=== PATIENT | male | born 1940 | race Caucasian/White ===

== ENCOUNTER 2017-06-14 14:39 | Inpatient (IN) | payer MEDICARE ==
[~2017-06-14] VITALS: Ht 167.6 cm; Wt 73.6 kg
[2017-06-14 07:45] VITALS: BP 120/41
[~2017-06-14 14:39] MED LIST: ACET-2615 PO; AMIO200T57 PO; APIX2.5T PO; ASPI-1053 PO; ATOR20TA; CARV25TA2 PO; ENAL20TA75 PO; FURO-150 PO; ISOS30TA9 PO; MULT-1179 PO; NIAC250C2 PO; NITR0.4T51 SL; OMEG500C3 PO; POTA10CA44 PO
[2017-06-14] MEDS ORDERED: normal saline 1000ml 1,000 ML IV ONE (15:50)
[2017-06-14] MEDS ORDERED: morphine sulfate 8 MG/ML SYRINGE IV ONE (15:50)
[2017-06-14] MEDS ORDERED: ATOR20TA PO (16:24)
[2017-06-14] MEDS ORDERED: AMIO200T57 PO (16:24)
[2017-06-14] MEDS ORDERED: ENAL10TA PO (16:24)
[2017-06-14 16:45] LABS: BASOPHILS % (AUTO) 0.5 % (0-1); EOSINOPHILS # (AUTO) 0.6 X10'3 (0-0.9); HEMATOCRIT 33.1 % (42.0-52.0); HEMOGLOBIN 11.6 g/dl (14.0-17.9); LYMPHOCYTES % (AUTO) 12.1 % (21-51); MEAN CORPUSCULAR HEMOGLOBIN 36.2 PG (27.0-31.0); MEAN CORPUSCULAR HGB CONC 35.2 % (33.0-36.5); MEAN CORPUSCULAR VOLUME 102.9 FL (78-98); MEAN PLATELET VOLUME 7.8 FL (7.4-10.4); MONOCYTES # (AUTO) 0.5 X10'3 (0-0.9); MONOCYTES % (AUTO) 6.4 % (2-12); NEUTROPHILS # (AUTO) 6.3 X10'3 (1.8-7.7); PLATELET COUNT 127 X10'3 (140-440); RED BLOOD COUNT 3.21 X10'6 (4.70-6.10); RED CELL DISTRIBUTION WIDTH 14.6 % (11.5-14.5); WHITE BLOOD COUNT 8.5 X10'3 (4.5-11.0)
[2017-06-14 16:55] LABS: INR 1.4 INR; PARTIAL THROMBOPLASTIN TIME 31 SECONDS (22-32); PROTHROMBIN TIME 14.1 SECONDS (9.0-12.0)
[2017-06-14 17:00] LABS: ALANINE AMINOTRANSFERASE 42 U/L (12-78); ALBUMIN 3.4 G/DL (3.4-5.0); ALBUMIN/GLOBULIN RATIO 0.9 (1.1-1.5); ALKALINE PHOSPHATASE 82 IU/L (46-116); ANION GAP 9 (8-16); ASPARTATE AMINO TRANSFERASE 40 U/L (10-37); BILIRUBIN,TOTAL 1.6 MG/DL (0.1-1.0); BLOOD UREA NITROGEN 44 MG/DL (7-18); BUN/CREATININE RATIO 20.8 (5.4-32.0); CHLORIDE 106 MMOL/L (99-107); CREATININE 2.12 MG/DL (0.60-1.10); GLUCOSE 112 MG/DL (70-104); MAGNESIUM 1.8 MG/DL (1.5-2.4); POTASSIUM 4.2 MMOL/L (3.5-5.1); SODIUM 139 MMOL/L (135-145); TOTAL CARBON DIOXIDE 24.1 MMOL/L (24-32); eGFR 31 ML/MIN
[2017-06-14 17:09] LABS: CLARITY,URINE Clear (Clear); COLOR,URINE Dark Yellow (Yellow); GLUCOSE, URINE Negative (Neg); KETONES,URINE Negative (Neg); LEUKOCYTE ESTERASE ,URINE Trace (Neg); NITRITES, URINE Negative (Neg); OCCULT BLOOD,URINE Negative (Neg); PROTEIN,URINE Negative (Neg)
[2017-06-14 17:10] LABS: UA COLLECTION TYPE URINAL
[2017-06-14 17:18] LABS: BACTERIA,URINE NONE SEEN /HPF (Neg); RBC,URINE NONE SEEN /HPF (0-2); SQUAMOUS EPITHELIAL CELL,UR NONE SEEN /LPF (FEW); WBC,URINE 0-4 /HPF (0-4)
[2017-06-14] MEDS ORDERED: mag hydrox/Alum hydrox/simeth 30ml oral suspension PO PRN (17:30)
[2017-06-14] MEDS ORDERED: potassium Cl 40MEQ/NS 500ml 500 ML IV PRN ×2 (17:30)
[2017-06-14] MEDS ORDERED: acetaminophen 325mg tablet PO PRN (17:30)
[2017-06-14] MEDS ORDERED: magnesium 2GM in 50ml NS 50 ML IV PRN (17:30)
[2017-06-14] MEDS ORDERED: magnesium hydroxide 30ml (MOM) UD suspension PO PRN (17:30)
[2017-06-14] MEDS ORDERED: potassium Cl 20 mEq SR tablet PO PRN ×2 (17:30)
[2017-06-14] MEDS ORDERED: ondansetron/PF 4mg/2ml inj IV PRN (17:30)
[2017-06-14] MEDS ORDERED: magnesium Cl slow-release 64mg tablet PO PRN (17:30)
[2017-06-14] MEDS ORDERED: magnesium 4gm in 100ml NS 100 ML IV PRN (17:30)
[2017-06-14] MEDS ORDERED: morphine sulfate 8 MG/ML SYRINGE IV PRN (17:30)
[2017-06-14] MEDS ORDERED: nitroGLYCERIN 0.4mg SUBLingual tab SL PRN (17:35)
[2017-06-14] MEDS: morphine sulfate 8 MG/ML SYRINGE IV PRN (20:00)
[2017-06-14] MEDS: carVEDilol 12.5mg tablet PO SCH (20:00)
[2017-06-14] MEDS: OMEGA-3/DHA/EPA/FISH OIL 1 EACH CAPSULE.DR PO SCH (20:00)
[2017-06-14] MEDS: atorvastatin 20mg tablet PO SCH (21:31)
[2017-06-14] MEDS: normal saline 1000ml 1,000 ML IV SCH (23:45)
[2017-06-15] MEDS: morphine sulfate 8 MG/ML SYRINGE IV PRN (04:03)
[2017-06-15 05:00] VITALS: BP 104/48
[2017-06-15] MEDS ORDERED: FLU VACC QS2017-18 36MOS UP/PF 60 MCG/0.5 ML SYRINGE IMVAC ONE (06:15)
[2017-06-15 06:40] LABS: CHLORIDE 110 MMOL/L (99-107); GLUCOSE 101 MG/DL (70-104); POTASSIUM 4.4 MMOL/L (3.5-5.1); SODIUM 143 MMOL/L (135-145); TOTAL CARBON DIOXIDE 22.2 MMOL/L (24-32)
[2017-06-15 06:41] LABS: ALANINE AMINOTRANSFERASE 41 U/L (12-78); ALBUMIN 3.2 G/DL (3.4-5.0); ALBUMIN/GLOBULIN RATIO 0.9 (1.1-1.5); ALKALINE PHOSPHATASE 79 IU/L (46-116); ANION GAP 11 (8-16); ASPARTATE AMINO TRANSFERASE 37 U/L (10-37); BILIRUBIN,TOTAL 1.8 MG/DL (0.1-1.0); BLOOD UREA NITROGEN 37 MG/DL (7-18); BUN/CREATININE RATIO 19.8 (5.4-32.0); CALCIUM 9.2 MG/DL (8.5-10.1); CREATININE 1.87 MG/DL (0.60-1.10); TOTAL PROTEIN 6.8 G/DL (6.4-8.2); eGFR 35 ML/MIN
[2017-06-15 06:45] LABS: MAGNESIUM 1.9 MG/DL (1.5-2.4)
[2017-06-15 07:02] LABS: BASOPHILS % (AUTO) 0.5 % (0-1); EOSINOPHILS # (AUTO) 0.5 X10'3 (0-0.9); EOSINOPHILS % (AUTO) 5.8 % (0-6); HEMATOCRIT 35.2 % (42.0-52.0); HEMOGLOBIN 11.8 g/dl (14.0-17.9); LYMPHOCYTES # (AUTO) 1.2 X10'3 (1.1-4.8); LYMPHOCYTES % (AUTO) 14.5 % (21-51); MEAN CORPUSCULAR HEMOGLOBIN 32.4 PG (27.0-31.0); MEAN CORPUSCULAR HGB CONC 33.4 % (33.0-36.5); MEAN CORPUSCULAR VOLUME 96.9 FL (78-98); MEAN PLATELET VOLUME 8.2 FL (7.4-10.4); MONOCYTES # (AUTO) 0.6 X10'3 (0-0.9); MONOCYTES % (AUTO) 6.7 % (2-12); NEUTROPHILS # (AUTO) 6.2 X10'3 (1.8-7.7); NEUTROPHILS % (AUTO) 72.5 % (42-75); PLATELET COUNT 124 X10'3 (140-440); RED BLOOD COUNT 3.64 X10'6 (4.70-6.10); RED CELL DISTRIBUTION WIDTH 14.3 % (11.5-14.5); WHITE BLOOD COUNT 8.5 X10'3 (4.5-11.0)
[2017-06-15] MEDS: K and/or MAG REPLACEMENT MC SCH (07:07)
[2017-06-15] MEDS: carVEDilol 12.5mg tablet PO SCH ×2 (07:08→20:51)
[2017-06-15] MEDS: isosorbide dinitrate 30mg tablet PO SCH (07:52)
[2017-06-15] MEDS: OMEGA-3/DHA/EPA/FISH OIL 1 EACH CAPSULE.DR PO SCH ×2 (07:52→20:00)
[2017-06-15] MEDS: amiodarone 200mg tablet PO SCH (07:52)
[2017-06-15] MEDS ORDERED: lisinopril 10 MG tablet PO SCH (08:00)
[2017-06-15 10:00] VITALS: BP 90/46
[2017-06-15 18:00] VITALS: BP 101/48
[2017-06-15] MEDS: normal saline 1000ml 1,000 ML IV SCH (18:00)
[2017-06-15] MEDS: atorvastatin 20mg tablet PO SCH (20:50)
[2017-06-15] MEDS: heparin, porcine 5000 units/ml vial SQ SCH (20:51)
[2017-06-15 22:00] VITALS: BP 93/53
[2017-06-16 05:00] VITALS: BP 105/55
[2017-06-16 06:21] LABS: BASOPHILS # (AUTO) 0.1 X10'3 (0-0.2); BASOPHILS % (AUTO) 0.8 % (0-1); EOSINOPHILS # (AUTO) 0.3 X10'3 (0-0.9); EOSINOPHILS % (AUTO) 3.4 % (0-6); HEMATOCRIT 35.8 % (42.0-52.0); HEMOGLOBIN 11.9 g/dl (14.0-17.9); LYMPHOCYTES # (AUTO) 1.5 X10'3 (1.1-4.8); LYMPHOCYTES % (AUTO) 16.3 % (21-51); MEAN CORPUSCULAR HEMOGLOBIN 32.1 PG (27.0-31.0); MEAN CORPUSCULAR HGB CONC 33.3 % (33.0-36.5); MEAN CORPUSCULAR VOLUME 96.3 FL (78-98); MEAN PLATELET VOLUME 8.2 FL (7.4-10.4); MONOCYTES # (AUTO) 0.8 X10'3 (0-0.9); MONOCYTES % (AUTO) 9.2 % (2-12); NEUTROPHILS # (AUTO) 6.5 X10'3 (1.8-7.7); NEUTROPHILS % (AUTO) 70.3 % (42-75); PLATELET COUNT 121 X10'3 (140-440); RED BLOOD COUNT 3.72 X10'6 (4.70-6.10); RED CELL DISTRIBUTION WIDTH 13.9 % (11.5-14.5); WHITE BLOOD COUNT 9.2 X10'3 (4.5-11.0)
[2017-06-16 06:49] LABS: ALANINE AMINOTRANSFERASE 48 U/L (12-78); ALBUMIN 2.9 G/DL (3.4-5.0); ALBUMIN/GLOBULIN RATIO 0.8 (1.1-1.5); ALKALINE PHOSPHATASE 78 IU/L (46-116); ANION GAP 11 (8-16); ASPARTATE AMINO TRANSFERASE 58 U/L (10-37); BILIRUBIN,TOTAL 1.6 MG/DL (0.1-1.0); BLOOD UREA NITROGEN 31 MG/DL (7-18); BUN/CREATININE RATIO 19.1 (5.4-32.0); CALCIUM 8.8 MG/DL (8.5-10.1); CHLORIDE 108 MMOL/L (99-107); CREATININE 1.62 MG/DL (0.60-1.10); GLUCOSE 95 MG/DL (70-104); POTASSIUM 4.4 MMOL/L (3.5-5.1); SODIUM 141 MMOL/L (135-145); TOTAL CARBON DIOXIDE 22.2 MMOL/L (24-32); TOTAL PROTEIN 6.6 G/DL (6.4-8.2); eGFR 42 ML/MIN
[2017-06-16] MEDS: K and/or MAG REPLACEMENT MC SCH (07:37)
[2017-06-16] MEDS: carVEDilol 12.5mg tablet PO SCH ×2 (08:00→20:46)
[2017-06-16] MEDS: lisinopril 5mg tablet PO SCH (08:00)
[2017-06-16] MEDS: amiodarone 200mg tablet PO SCH (08:12)
[2017-06-16] MEDS: isosorbide dinitrate 30mg tablet PO SCH (08:13)
[2017-06-16] MEDS: normal saline 1000ml 1,000 ML IV SCH ×2 (08:13→23:17)
[2017-06-16] MEDS: heparin, porcine 5000 units/ml vial SQ SCH ×2 (08:13→20:00)
[2017-06-16] MEDS: OMEGA-3/DHA/EPA/FISH OIL 1 EACH CAPSULE.DR PO SCH ×2 (08:13→20:46)
[2017-06-16 10:00] VITALS: BP 110/63
[2017-06-16] MEDS ORDERED: emollient combination-Eucerin 250 ML LOTION TP PRN (13:30)
[2017-06-16] MEDS ORDERED: diphenhydrAMINE 25mg capsule PO PRN (13:30)
[2017-06-16 18:30] VITALS: BP 111/66
[2017-06-16] MEDS: atorvastatin 20mg tablet PO SCH (20:46)
[2017-06-16 22:00] VITALS: BP 94/48
[2017-06-17] VITALS (17 sets, daily range): BP systolic 88–129; BP diastolic 37–75
[2017-06-17 06:57] LABS: INR 1.2 INR; PROTHROMBIN TIME 12.5 SECONDS (9.0-12.0)
[2017-06-17 07:20] LABS: ALANINE AMINOTRANSFERASE 49 U/L (12-78); ALBUMIN 2.8 G/DL (3.4-5.0); ALBUMIN/GLOBULIN RATIO 0.7 (1.1-1.5); ALKALINE PHOSPHATASE 78 IU/L (46-116); ANION GAP 10 (8-16); ASPARTATE AMINO TRANSFERASE 61 U/L (10-37); BILIRUBIN,TOTAL 1.4 MG/DL (0.1-1.0); BLOOD UREA NITROGEN 28 MG/DL (7-18); BUN/CREATININE RATIO 18.2 (5.4-32.0); CALCIUM 8.5 MG/DL (8.5-10.1); CHLORIDE 107 MMOL/L (99-107); CREATININE 1.54 MG/DL (0.60-1.10); GLUCOSE 98 MG/DL (70-104); POTASSIUM 4.4 MMOL/L (3.5-5.1); SODIUM 139 MMOL/L (135-145); TOTAL CARBON DIOXIDE 22.2 MMOL/L (24-32); TOTAL PROTEIN 6.6 G/DL (6.4-8.2); eGFR 44 ML/MIN
[2017-06-17 07:21] LABS: BASOPHILS % (AUTO) 0.1 % (0-1); EOSINOPHILS # (AUTO) 0.3 X10'3 (0-0.9); EOSINOPHILS % (AUTO) 2.9 % (0-6); HEMATOCRIT 35.5 % (42.0-52.0); HEMOGLOBIN 11.8 g/dl (14.0-17.9); LYMPHOCYTES # (AUTO) 1.5 X10'3 (1.1-4.8); MEAN CORPUSCULAR HEMOGLOBIN 32.4 PG (27.0-31.0); MEAN CORPUSCULAR HGB CONC 33.3 % (33.0-36.5); MEAN CORPUSCULAR VOLUME 97.4 FL (78-98); MEAN PLATELET VOLUME 8.1 FL (7.4-10.4); MONOCYTES # (AUTO) 0.7 X10'3 (0-0.9); NEUTROPHILS # (AUTO) 6.5 X10'3 (1.8-7.7); PLATELET COUNT 137 X10'3 (140-440); RED BLOOD COUNT 3.64 X10'6 (4.70-6.10); RED CELL DISTRIBUTION WIDTH 14.4 % (11.5-14.5); WHITE BLOOD COUNT 9.1 X10'3 (4.5-11.0)
[2017-06-17] MEDS: K and/or MAG REPLACEMENT MC SCH (07:34)
[2017-06-17] MEDS: lisinopril 5mg tablet PO SCH (07:35)
[2017-06-17] MEDS: carVEDilol 12.5mg tablet PO SCH (07:35)
[2017-06-17] MEDS: heparin, porcine 5000 units/ml vial SQ SCH ×2 (07:36→20:56)
[2017-06-17] MEDS: amiodarone 200mg tablet PO SCH (07:42)
[2017-06-17] MEDS: OMEGA-3/DHA/EPA/FISH OIL 1 EACH CAPSULE.DR PO SCH ×2 (07:42→20:56)
[2017-06-17] MEDS: isosorbide dinitrate 30mg tablet PO SCH (07:42)
[2017-06-17] MEDS ORDERED: ringers solution, lacted 1,000 ML IV SCH (11:01)
[2017-06-17] MEDS ORDERED: morphine sulfate 8 MG/ML SYRINGE IV PRN (11:05)
[2017-06-17] MEDS ORDERED: meperidine/PF 25mg/ml syringe IV ONE (11:05)
[2017-06-17] MEDS ORDERED: proCHLORperazine 10 MG/2 ml inj IV PRN (11:05)
[2017-06-17] MEDS ORDERED: ondansetron/PF 4mg/2ml inj IV PRN ×2 (11:05→13:35)
[2017-06-17] MEDS ORDERED: meperidine/PF 25mg/ml syringe IV PRN ×2 (11:05)
[2017-06-17] MEDS: carvedilol 6.25mg tablet PO SCH ×2 (11:41→20:00)
[2017-06-17] MEDS ORDERED: desflurane 240ml liquid inh. IH ONE (12:00)
[2017-06-17] MEDS ORDERED: fentaNYL /PF 50mcg/ml 5ml ampule ONE (12:08)
[2017-06-17] MEDS ORDERED: midazolam 2 mg/2 ml injection ONE (12:08)
[2017-06-17] MEDS ORDERED: LIDOcaine 2% 5ml jelly ONE (12:14)
[2017-06-17] MEDS ORDERED: cloNIDine hcl/PF 100mcg/ml inj ONE (12:32)
[2017-06-17] MEDS ORDERED: rocuronium 10mg/ml inj IV ONE (12:44)
[2017-06-17] MEDS ORDERED: ceFAZolin 1000mg inj ONE (12:44)
[2017-06-17] MEDS ORDERED: LIDOcaine 2% (20mg/ml) 5ml vial ONE (12:44)
[2017-06-17] MEDS ORDERED: propofol inj 20 ML IV ONE (12:44)
[2017-06-17] MEDS ORDERED: diphenhydrAMINE 25mg capsule PO PRN ×2 (13:35)
[2017-06-17] MEDS ORDERED: magnesium hydroxide 30ml (MOM) UD suspension PO PRN (13:35)
[2017-06-17] MEDS ORDERED: bisacodyl 10mg suppository rectal RC PRN (13:35)
[2017-06-17] MEDS ORDERED: acetaminophen 325mg tablet PO PRN (13:35)
[2017-06-17] MEDS ORDERED: dexamethasone sod phosphate 4mg/ml inj. ONE (13:42)
[2017-06-17] MEDS ORDERED: BUPIVAcaine/PF 2.5 mg/ml (0.25%) 30ml vial ONE (13:42)
[2017-06-17] MEDS ORDERED: 0.9 % SODIUM CHLORIDE 10 ML VIAL ONE (13:42)
[2017-06-17] MEDS: morphine sulfate 8 MG/ML SYRINGE IV PRN ×3 (14:31→16:51)
[2017-06-17] MEDS: CEFAZOLIN SODIUM/NORMAL SALINE 100 ML IV SCH (16:51)
[2017-06-17] MEDS: normal saline 1000ml 1,000 ML IV SCH (20:56)
[2017-06-17] MEDS: sennosides 8.6mg tablet PO SCH (20:56)
[2017-06-17] MEDS: atorvastatin 20mg tablet PO SCH (20:56)
[2017-06-18] MEDS: CEFAZOLIN SODIUM/NORMAL SALINE 100 ML IV SCH (00:32)
[2017-06-18 02:00] VITALS: BP 119/73
[2017-06-18 05:00] VITALS: BP 118/70
[2017-06-18 06:24] LABS: BASOPHILS % (AUTO) 0.1 % (0-1); EOSINOPHILS # (AUTO) 0.1 X10'3 (0-0.9); EOSINOPHILS % (AUTO) 1.5 % (0-6); HEMATOCRIT 35.8 % (42.0-52.0); HEMOGLOBIN 11.9 g/dl (14.0-17.9); LYMPHOCYTES # (AUTO) 0.6 X10'3 (1.1-4.8); LYMPHOCYTES % (AUTO) 6.6 % (21-51); MEAN CORPUSCULAR HEMOGLOBIN 32.4 PG (27.0-31.0); MEAN CORPUSCULAR HGB CONC 33.1 % (33.0-36.5); MEAN CORPUSCULAR VOLUME 97.9 FL (78-98); MEAN PLATELET VOLUME 8.4 FL (7.4-10.4); MONOCYTES # (AUTO) 0.3 X10'3 (0-0.9); MONOCYTES % (AUTO) 3.7 % (2-12); NEUTROPHILS % (AUTO) 88.1 % (42-75); PLATELET COUNT 124 X10'3 (140-440); RED BLOOD COUNT 3.65 X10'6 (4.70-6.10); RED CELL DISTRIBUTION WIDTH 13.7 % (11.5-14.5); WHITE BLOOD COUNT 9.1 X10'3 (4.5-11.0)
[2017-06-18 06:35] LABS: ALANINE AMINOTRANSFERASE 43 U/L (12-78); ALBUMIN 2.6 G/DL (3.4-5.0); ALBUMIN/GLOBULIN RATIO 0.7 (1.1-1.5); ALKALINE PHOSPHATASE 74 IU/L (46-116); ANION GAP 11 (8-16); ASPARTATE AMINO TRANSFERASE 57 U/L (10-37); BILIRUBIN,TOTAL 1.1 MG/DL (0.1-1.0); BLOOD UREA NITROGEN 32 MG/DL (7-18); BUN/CREATININE RATIO 24.4 (5.4-32.0); CALCIUM 8.7 MG/DL (8.5-10.1); CHLORIDE 107 MMOL/L (99-107); CREATININE 1.31 MG/DL (0.60-1.10); GLUCOSE 129 MG/DL (70-104); MAGNESIUM 1.9 MG/DL (1.5-2.4); POTASSIUM 4.6 MMOL/L (3.5-5.1); SODIUM 140 MMOL/L (135-145); TOTAL CARBON DIOXIDE 21.8 MMOL/L (24-32); TOTAL PROTEIN 6.5 G/DL (6.4-8.2); eGFR 53 ML/MIN
[2017-06-18] MEDS: K and/or MAG REPLACEMENT MC SCH (08:00)
[2017-06-18] MEDS: OMEGA-3/DHA/EPA/FISH OIL 1 EACH CAPSULE.DR PO SCH ×2 (08:37→19:37)
[2017-06-18] MEDS: carvedilol 6.25mg tablet PO SCH ×2 (08:37→20:00)
[2017-06-18] MEDS: amiodarone 200mg tablet PO SCH (08:37)
[2017-06-18] MEDS: isosorbide dinitrate 30mg tablet PO SCH (08:38)
[2017-06-18] MEDS: lisinopril 5mg tablet PO SCH (08:38)
[2017-06-18] MEDS: heparin, porcine 5000 units/ml vial SQ SCH (08:38)
[2017-06-18 10:00] VITALS: BP 102/60
[2017-06-18 18:03] VITALS: BP 92/52
[2017-06-18] MEDS: sennosides 8.6mg tablet PO SCH (19:37)
[2017-06-18] MEDS: atorvastatin 20mg tablet PO SCH (19:37)
[2017-06-18] MEDS: apixaban 2.5mg tablet PO SCH (19:37)
[2017-06-18 19:39] VITALS: BP 85/48
[2017-06-18] MEDS: normal saline 1000ml 1,000 ML IV SCH (21:10)
[2017-06-18 22:11] VITALS: BP 94/53
[2017-06-19] MEDS ORDERED: HYDROcodone/acetaminophen 10/325mg tab PO PRN (05:20)
[2017-06-19 06:00] VITALS: BP 92/52
[2017-06-19] MEDS: HYDROcodone/acetaminophen 10/325mg tab PO PRN (06:13)
[2017-06-19] MEDS: carvedilol 6.25mg tablet PO SCH ×2 (06:52→20:24)
[2017-06-19] MEDS: lisinopril 5mg tablet PO SCH (06:53)
[2017-06-19] MEDS: amiodarone 200mg tablet PO SCH (07:16)
[2017-06-19] MEDS: isosorbide dinitrate 30mg tablet PO SCH (07:17)
[2017-06-19] MEDS: apixaban 2.5mg tablet PO SCH ×2 (07:17→20:24)
[2017-06-19] MEDS: OMEGA-3/DHA/EPA/FISH OIL 1 EACH CAPSULE.DR PO SCH ×2 (07:17→20:24)
[2017-06-19 07:43] LABS: BASOPHILS # (AUTO) 0.1 X10'3 (0-0.2); BASOPHILS % (AUTO) 0.5 % (0-1); EOSINOPHILS # (AUTO) 0.2 X10'3 (0-0.9); EOSINOPHILS % (AUTO) 1.3 % (0-6); HEMATOCRIT 32.8 % (42.0-52.0); HEMOGLOBIN 10.8 g/dl (14.0-17.9); LYMPHOCYTES % (AUTO) 8.4 % (21-51); MEAN CORPUSCULAR HEMOGLOBIN 32.4 PG (27.0-31.0); MEAN CORPUSCULAR HGB CONC 32.9 % (33.0-36.5); MEAN CORPUSCULAR VOLUME 98.5 FL (78-98); MEAN PLATELET VOLUME 8.6 FL (7.4-10.4); MONOCYTES # (AUTO) 0.8 X10'3 (0-0.9); MONOCYTES % (AUTO) 6.7 % (2-12); NEUTROPHILS # (AUTO) 9.9 X10'3 (1.8-7.7); NEUTROPHILS % (AUTO) 83.1 % (42-75); PLATELET COUNT 142 X10'3 (140-440); RED BLOOD COUNT 3.33 X10'6 (4.70-6.10); RED CELL DISTRIBUTION WIDTH 14.1 % (11.5-14.5); WHITE BLOOD COUNT 11.9 X10'3 (4.5-11.0)
[2017-06-19 08:00] LABS: ALANINE AMINOTRANSFERASE 39 U/L (12-78); ALBUMIN 2.5 G/DL (3.4-5.0); ALBUMIN/GLOBULIN RATIO 0.6 (1.1-1.5); ALKALINE PHOSPHATASE 78 IU/L (46-116); ANION GAP 9 (8-16); ASPARTATE AMINO TRANSFERASE 54 U/L (10-37); BILIRUBIN,TOTAL 0.9 MG/DL (0.1-1.0); BLOOD UREA NITROGEN 49 MG/DL (7-18); BUN/CREATININE RATIO 30.8 (5.4-32.0); CALCIUM 8.7 MG/DL (8.5-10.1); CHLORIDE 108 MMOL/L (99-107); CREATININE 1.59 MG/DL (0.60-1.10); GLUCOSE 129 MG/DL (70-104); MAGNESIUM 2.2 MG/DL (1.5-2.4); POTASSIUM 4.4 MMOL/L (3.5-5.1); SODIUM 138 MMOL/L (135-145); TOTAL CARBON DIOXIDE 21.5 MMOL/L (24-32); TOTAL PROTEIN 6.4 G/DL (6.4-8.2); eGFR 43 ML/MIN
[2017-06-19] MEDS: K and/or MAG REPLACEMENT MC SCH (08:00)
[2017-06-19 10:00] VITALS: BP 104/64
[2017-06-19 18:30] VITALS: BP 114/67
[2017-06-19] MEDS: atorvastatin 20mg tablet PO SCH (20:24)
[2017-06-19] MEDS: sennosides 8.6mg tablet PO SCH (20:24)
[2017-06-19 22:00] VITALS: BP 106/61
[2017-06-20 05:00] VITALS: BP 130/69
[2017-06-20] MEDS: HYDROcodone/acetaminophen 10/325mg tab PO PRN (05:48)
[2017-06-20] MEDS: K and/or MAG REPLACEMENT MC SCH (07:25)
[2017-06-20] MEDS: lisinopril 5mg tablet PO SCH (07:30)
[2017-06-20] MEDS: amiodarone 200mg tablet PO SCH (07:30)
[2017-06-20] MEDS: OMEGA-3/DHA/EPA/FISH OIL 1 EACH CAPSULE.DR PO SCH (07:30)
[2017-06-20] MEDS: apixaban 2.5mg tablet PO SCH (07:30)
[2017-06-20] MEDS: carvedilol 6.25mg tablet PO SCH (07:30)
[2017-06-20] MEDS: isosorbide dinitrate 30mg tablet PO SCH (07:30)
[2017-06-20 10:00] VITALS: BP 98/57
== END 2017-06-20 14:00 | DRG 469 ==
LOC: ER 14:39 → ED HOLD 17:37 → EDBEDREQ 18:43 → ORTHO 4S 19:34
PROVIDERS: ADMIT Internal Medicine; ATTEND Internal Medicine
PROC: 0SRR0J9 Replacement of Right Hip Joint, Femoral Surface with Synthetic Substitute, Cemented, Open Approach (ICD-10-PCS; principal; 2017-06-17 12:00)
DX: S72.001A Fracture of unspecified part of neck of right femur, initial encounter for closed fracture (principal); N17.0 Acute kidney failure with tubular necrosis; I48.2 Chronic atrial fibrillation; E86.0 Dehydration; Z86.74 Personal history of sudden cardiac arrest; I42.9 Cardiomyopathy, unspecified; E78.00 Pure hypercholesterolemia, unspecified; I12.9 Hypertensive chronic kidney disease with stage 1 through stage 4 chronic kidney disease, or unspecified chronic kidney disease; N18.3 Chronic kidney disease, stage 3 (moderate); I25.10 Atherosclerotic heart disease of native coronary artery without angina pectoris; W18.39XA Other fall on same level, initial encounter; I25.2 Old myocardial infarction; Z95.810 Presence of automatic (implantable) cardiac defibrillator; Z95.1 Presence of aortocoronary bypass graft; Z79.01 Long term (current) use of anticoagulants; Z79.899 Other long term (current) drug therapy; Z79.82 Long term (current) use of aspirin; Y92.89 Other specified places as the place of occurrence of the external cause; Y93.01 Activity, walking, marching and hiking; Y99.8 Other external cause status
CPT/HCPCS: 36415; 71010; 73502; 73564; 80053; 81001; 83735; 84484; 85025; 85610; 85730; 87070; 87088; 93005; 93306; 97110; 97116; 97161; 97530; 99285; A6222; A6255; A6449; A6455; A7000; C1713; C1758; C1776; J0690; J0735; J1100; J1644; J2001; J2250; J2270; J2704; J3010; J3490; J7030; J7120; Q0163

== ENCOUNTER 2023-11-20 06:17 | Day surgery (SDC) | payer OTHER ==
[2023-11-19 13:06] LABS: ALBUMIN 2.9 G/DL (3.4-5.0); ANION GAP 8 (8-16); BLOOD UREA NITROGEN 37 MG/DL (7-18); BUN/CREATININE RATIO 17.5 (10.0-20.0); CALCIUM 8.9 MG/DL (8.5-10.1); CHLORIDE 107 MMOL/L (99-107); CREATININE 2.11 MG/DL (0.60-1.10); GLUCOSE 107 MG/DL (70-104); POTASSIUM 4.9 MMOL/L (3.5-5.1); SODIUM 140 MMOL/L (135-145); TOTAL CARBON DIOXIDE 25.5 MMOL/L (24-32); eGFR 30 ML/MIN
[2023-11-19 13:10] LABS: APTT 27 SECONDS (22-32); INR 1.1 INR; PROTHROMBIN TIME 11.9 SECONDS (9.0-12.0)
[2023-11-19 13:24] LABS: BASOPHILS # (AUTO) 0.1 X10'3 (0-0.2); BASOPHILS % (AUTO) 1.2 % (0-1); EOSINOPHILS # (AUTO) 0.2 X10'3 (0-0.9); EOSINOPHILS % (AUTO) 3.9 % (0-6); HEMOGLOBIN 9.8 g/dl (14.0-17.9); LYMPHOCYTES # (AUTO) 0.9 X10'3 (1.1-4.8); LYMPHOCYTES % (AUTO) 21.8 % (21-51); MEAN CORPUSCULAR HEMOGLOBIN 32.8 PG (27.0-31.0); MEAN CORPUSCULAR HGB CONC 33.6 g/dL (33.0-36.5); MEAN CORPUSCULAR VOLUME 97.7 FL (78-98); MEAN PLATELET VOLUME 8.5 FL (7.4-10.4); MONOCYTES # (AUTO) 0.5 X10'3 (0-0.9); MONOCYTES % (AUTO) 11.3 % (2-12); NEUTROPHILS # (AUTO) 2.5 X10'3 (1.8-7.7); NEUTROPHILS % (AUTO) 61.8 % (42-75); PLATELET COUNT 163 X10'3 (140-440); RED BLOOD COUNT 2.97 X10'6 (4.70-6.10); RED CELL DISTRIBUTION WIDTH 18.2 % (11.5-14.5); WHITE BLOOD COUNT 4.1 X10'3 (4.5-11.0)
[2023-11-20] VITALS (9 sets, daily range): BP systolic 97–114; BP diastolic 43–60; PULSE 70–74; RESP 14–17; TEMP 98.1; O2SAT 95–98
[~2023-11-20] VITALS: Ht 165.1 cm; Wt 63.1 kg
[~2023-11-20 06:17] MED LIST changes: -AMIO200T57 PO; -ASPI-1053 PO; -ATOR20TA; +ATOR20TA PO; +ENAL-78 PO; -ENAL20TA75 PO; -NIAC250C2 PO; +NIAC250C26 PO; -POTA10CA44 PO; +POTA10CA85 PO
[2023-11-20] MEDS ORDERED: cefazolin 2gm/D5W 100mL 100 ML IV ONE (06:45)
[2023-11-20] MEDS ORDERED: SACU1TAB PO (06:54)
[2023-11-20] MEDS ORDERED: midazolam 1 mg/ML 2ml injection ONE (07:42)
[2023-11-20] MEDS ORDERED: LIDOCAINE 2%/EPI 1:100,000 inj. Multi-dose 20 ML VIAL ONE (07:42)
[2023-11-20] MEDS ORDERED: fentaNYL/PF 50MCG/1 ML 2ML syringe ONE (07:42)
[2023-11-20] MEDS ORDERED: LIDOcaine 1% W/epiNEPHrine 1:100,000 20ml vial ONE ×2 (08:24→09:00)
[2023-11-20] MEDS ORDERED: vancomycin 1,000mg inj ONE (08:38)
[2023-11-20] MEDS ORDERED: HYDROcodone/acetaminophen 5mg/325mg tablet PO PRN (10:30)
[2023-11-20] MEDS: normal saline 1000ml 1,000 ML IV SCH (10:30)
[2023-11-20] MEDS ORDERED: HYDROcodone/acetaminophen 10/325mg tab PO PRN (10:30)
[2023-11-20] MEDS: vancomycin/NS 1 GM ADD-VANTAGE 250 ML IV ONE (11:19)
[2023-11-20] MEDS: clindamycin-Cleocin 900mg/D5W 50 ML IV ONE (13:45)
== END 2023-11-20 14:05 | disposition home or self-care (01) ==
LOC: SSTAY O 06:17
PROVIDERS: ATTEND Internal Medicine Cardiovascular Disease
DX: T82.111A Breakdown (mechanical) of cardiac pulse generator (battery), initial encounter (principal); I11.0 Hypertensive heart disease with heart failure; I50.22 Chronic systolic (congestive) heart failure; I25.10 Atherosclerotic heart disease of native coronary artery without angina pectoris; E78.5 Hyperlipidemia, unspecified; I48.91 Unspecified atrial fibrillation; I48.92 Unspecified atrial flutter; I42.0 Dilated cardiomyopathy; G47.30 Sleep apnea, unspecified; I25.2 Old myocardial infarction; Z79.01 Long term (current) use of anticoagulants; Z79.899 Other long term (current) drug therapy; Z95.1 Presence of aortocoronary bypass graft; Z96.641 Presence of right artificial hip joint; Z90.49 Acquired absence of other specified parts of digestive tract; Z98.890 Other specified postprocedural states; Z88.8 Allergy status to other drugs, medicaments and biological substances; Z82.49 Family history of ischemic heart disease and other diseases of the circulatory system; Z81.8 Family history of other mental and behavioral disorders; Y70.2 Prosthetic and other implants, materials and accessory anesthesiology devices associated with adverse incidents; Y92.89 Other specified places as the place of occurrence of the external cause
CPT/HCPCS: 33264; 36415; 80048; 85025; 85610; 85730; 93005; 99152; 99153; C1882; J2250; J3010; J3370; J3490; J7030; A6258; A6449

== ENCOUNTER 2024-06-07 15:42 | Inpatient (IN) | payer MEDICARE, OTHER ==
[~2024-06-07] VITALS: Ht 170.2 cm; Wt 60.0 kg
[~2024-06-07 15:42] MED LIST changes: -ACET-2615 PO; -ENAL-78 PO; -NIAC250C26 PO; -POTA10CA85 PO; +POTA10CA95 PO; +SACU1TAB PO
[2024-06-07] MEDS: HYDROmorphone 1 mg/ml syringe ONE (16:48)
[2024-06-07] MEDS: HYDROmorphone inj. 0.5 MG/0.5 ML DISP.SYRIN IV ONE (16:48)
[2024-06-07 17:25] LABS: ALANINE AMINOTRANSFERASE 11 U/L (12-78); ALBUMIN 2.5 G/DL (3.4-5.0); ALBUMIN/GLOBULIN RATIO 0.7 (1.1-1.5); ALKALINE PHOSPHATASE 79 IU/L (46-116); ANION GAP 7 (8-16); ASPARTATE AMINO TRANSFERASE 21 U/L (10-37); BILIRUBIN,TOTAL 0.8 MG/DL (0.1-1.0); BLOOD UREA NITROGEN 41 MG/DL (7-18); BUN/CREATININE RATIO 22.3 (10.0-20.0); CALCIUM 8.7 MG/DL (8.5-10.1); CHLORIDE 113 MMOL/L (99-107); CREATININE 1.84 MG/DL (0.60-1.10); GLUCOSE 114 MG/DL (70-104); POTASSIUM 4.9 MMOL/L (3.5-5.1); SODIUM 145 MMOL/L (135-145); TOTAL CARBON DIOXIDE 25.3 MMOL/L (24-32); TOTAL PROTEIN 6.3 G/DL (6.4-8.2); eCRCL 26 ML/MIN; eGFR 35 ML/MIN
[2024-06-07 18:41] LABS: BASOPHILS # (AUTO) 0.1 X10'3 (0-0.2); BASOPHILS % (AUTO) 0.9 % (0-1); EOSINOPHILS # (AUTO) 0.2 X10'3 (0-0.9); EOSINOPHILS % (AUTO) 2.7 % (0-6); HEMATOCRIT 27.5 % (42.0-52.0); HEMOGLOBIN 9.9 g/dl (14.0-17.9); LYMPHOCYTES # (AUTO) 0.6 X10'3 (1.1-4.8); LYMPHOCYTES % (AUTO) 11.2 % (21-51); MEAN CORPUSCULAR HGB CONC 36.1 g/dL (33.0-36.5); MEAN PLATELET VOLUME 8.6 FL (7.4-10.4); MONOCYTES # (AUTO) 0.2 X10'3 (0-0.9); NEUTROPHILS # (AUTO) 4.6 X10'3 (1.8-7.7); NEUTROPHILS % (AUTO) 81.2 % (42-75); PLATELET COUNT 189 X10'3 (140-440); RED BLOOD COUNT 2.55 X10'6 (4.70-6.10); RED CELL DISTRIBUTION WIDTH 16.4 % (11.5-14.5); WHITE BLOOD COUNT 5.7 X10'3 (4.5-11.0)
[2024-06-07] MEDS: HYDROmorphone 1 mg/ml syringe IV ONE (18:56)
[2024-06-07] MEDS: normal saline 1000ml 1,000 ML IV ONE (18:56)
[2024-06-07] MEDS ORDERED: HYDROcodone/acetaminophen 10/325mg tab PO PRN (19:30)
[2024-06-07] MEDS ORDERED: potassium Cl 20 mEq SR tablet PO PRN ×2 (19:30)
[2024-06-07] MEDS ORDERED: magnesium sulf-water 4G/100mL 100 ML IV PRN (19:30)
[2024-06-07] MEDS ORDERED: potassium Cl 40MEQ/1/2NS 520ml 520 ML IV PRN (19:30)
[2024-06-07] MEDS ORDERED: magnesium sulf-water 2g/50mL 50 ML IV PRN (19:30)
[2024-06-07] MEDS ORDERED: HYDROcodone/acetaminophen 5mg/325mg tablet PO PRN (19:30)
[2024-06-07] MEDS ORDERED: acetaminophen 325mg tablet PO PRN ×2 (19:30)
[2024-06-07] MEDS ORDERED: morphine 2 MG/ML inj. syringe IV PRN (19:30)
[2024-06-07] MEDS ORDERED: ondansetron/PF 4mg/2ml inj IV PRN (19:30)
[2024-06-07] MEDS: K and/or MAG REPLACEMENT MC SCH (19:49)
[2024-06-07] MEDS: docusate sod 100mg capsule PO SCH (19:49)
[2024-06-07] MEDS ORDERED: heparin, porcine 5000 units/ml vial SQ SCH (20:00)
[2024-06-07] MEDS ORDERED: nitroGLYCERIN 0.4mg SUBLingual tab SL PRN (20:00)
[2024-06-07 20:36] LABS: APTT 30 SECONDS (22-32); INR 1.3 INR; PROTHROMBIN TIME 13.4 SECONDS (9.0-12.0)
[2024-06-07] MEDS: OMEGA-3/DHA/EPA/FISH OIL 1 EACH CAPSULE.DR PO SCH (20:43)
[2024-06-07] MEDS: normal saline 1000ml 1,000 ML IV SCH (20:53)
[2024-06-07] MEDS: atorvastatin 20mg tablet PO SCH (22:18)
[2024-06-07] MEDS: morphine 2 MG/ML inj. syringe IV PRN (22:22)
[2024-06-07 23:19] LABS: % IRON SATURATION 32 % (11-46); IRON 76 UG/DL (53-167); TOTAL IRON BINDING CAPACITY 241 UG/DL (259-388)
[2024-06-08] MEDS: dextrose 5%-1/2 normal saline 1,000 ML IV SCH (01:27)
[2024-06-08 03:00] LABS: ALANINE AMINOTRANSFERASE 20 U/L (12-78); ALBUMIN 2.4 G/DL (3.4-5.0); ALBUMIN/GLOBULIN RATIO 0.6 (1.1-1.5); ALKALINE PHOSPHATASE 85 IU/L (46-116); ANION GAP 8 (8-16); ASPARTATE AMINO TRANSFERASE 23 U/L (10-37); BILIRUBIN,TOTAL 1.1 MG/DL (0.1-1.0); BLOOD UREA NITROGEN 42 MG/DL (7-18); BUN/CREATININE RATIO 23.9 (10.0-20.0); CALCIUM 8.5 MG/DL (8.5-10.1); CHLORIDE 113 MMOL/L (99-107); CREATININE 1.76 MG/DL (0.60-1.10); GLUCOSE 121 MG/DL (70-104); SODIUM 146 MMOL/L (135-145); TOTAL CARBON DIOXIDE 24.6 MMOL/L (24-32); TOTAL PROTEIN 6.2 G/DL (6.4-8.2); eCRCL 27 ML/MIN; eGFR 37 ML/MIN
[2024-06-08 03:13] LABS: BASOPHILS # (AUTO) 0.1 X10'3 (0-0.2); BASOPHILS % (AUTO) 1.3 % (0-1); EOSINOPHILS # (AUTO) 0.2 X10'3 (0-0.9); EOSINOPHILS % (AUTO) 2.4 % (0-6); HEMATOCRIT 26.3 % (42.0-52.0); HEMOGLOBIN 9.8 g/dl (14.0-17.9); LYMPHOCYTES # (AUTO) 0.7 X10'3 (1.1-4.8); LYMPHOCYTES % (AUTO) 10.5 % (21-51); MEAN CORPUSCULAR HEMOGLOBIN 40.1 PG (27.0-31.0); MEAN CORPUSCULAR HGB CONC 37.1 g/dL (33.0-36.5); MEAN CORPUSCULAR VOLUME 108.2 FL (78-98); MEAN PLATELET VOLUME 8.4 FL (7.4-10.4); MONOCYTES # (AUTO) 0.4 X10'3 (0-0.9); MONOCYTES % (AUTO) 5.5 % (2-12); NEUTROPHILS # (AUTO) 5.2 X10'3 (1.8-7.7); NEUTROPHILS % (AUTO) 80.3 % (42-75); PLATELET COUNT 159 X10'3 (140-440); RED BLOOD COUNT 2.43 X10'6 (4.70-6.10); RED CELL DISTRIBUTION WIDTH 16.4 % (11.5-14.5); WHITE BLOOD COUNT 6.4 X10'3 (4.5-11.0)
[2024-06-08 07:15] VITALS: BP_SYST 83; BP_SYST 90; BP_SYST 93; BP_DIAS 21; BP_DIAS 39; BP_DIAS 42; PULSE 69; RESP 16; TEMP 97.8; O2SAT 99
[2024-06-08] MEDS: pantoprazole 40mg Tablet.DR PO SCH (07:30)
[2024-06-08] MEDS: multivitamins, therapeutics tablet PO SCH (08:00)
[2024-06-08 10:00] VITALS: BP 104/41; PULSE 70; RESP 17; TEMP 97.3; O2SAT 98
[2024-06-08] MEDS ORDERED: ringers solution, lacted 1,000 ML IV ONE (10:20)
[2024-06-08] MEDS: isosorbide dinitrate 30mg tablet PO SCH (10:40)
[2024-06-08] MEDS ORDERED: ROPIVAcaine 0.5% (5mg/ml) 30ml vial ONE (11:11)
[2024-06-08] MEDS ORDERED: vancomycin 1,000mg inj ONE (11:11)
[2024-06-08] MEDS ORDERED: morphine 4 MG/ML inj SYRINge IV PRN (13:20)
[2024-06-08] MEDS ORDERED: enalaprilat dihydrate 2.5mg/2ml vial IV PRN (13:20)
[2024-06-08] MEDS ORDERED: DOBUTamine-DoBUTrex 500mg/D5W 250 ML IV SCH (13:20)
[2024-06-08] MEDS ORDERED: labetalol 20mg/4ml (5mg/ml) syringe IV PRN (13:20)
[2024-06-08] MEDS ORDERED: fentaNYL/PF 50MCG/1 ML 2ML syringe IV PRN ×2 (13:20)
[2024-06-08] MEDS ORDERED: ondansetron/PF 4mg/2ml inj IV PRN (13:20)
[2024-06-08] MEDS ORDERED: ringers solution, lacted 1,000 ML IV SCH (13:20)
[2024-06-08] MEDS ORDERED: morphine 2 MG/ML inj. syringe IV PRN (13:20)
[2024-06-08] MEDS ORDERED: propofol inj 20 ML IV ONE (15:47)
[2024-06-08] MEDS ORDERED: LIDOcaine 2% (20mg/ml) 5ml vial ONE (15:47)
[2024-06-08] MEDS ORDERED: fentaNYL/PF 50MCG/1 ML 2ML syringe ONE (15:47)
[2024-06-08] MEDS ORDERED: midazolam 1 mg/ML 2ml injection ONE (15:47)
[2024-06-08] MEDS ORDERED: ondansetron/PF 4mg/2ml inj ONE (15:48)
[2024-06-08] MEDS ORDERED: dexamethasone sod phosphate 4mg/ml inj. ONE (15:48)
[2024-06-08] MEDS ORDERED: sevoflurane 250ml liquid IH ONE (16:05)
[2024-06-08] MEDS ORDERED: albumin (Human) 5% 250ml 250 ML IV ONE ×2 (16:29→16:50)
== END 2024-06-08 18:10 | DRG 521 ==
LOC: ER 15:42 → ED HOLD 19:33 → ORTHO 4S 06-08 07:05
PROVIDERS: ADMIT Internal Medicine Critical Care Medicine; ATTEND Internal Medicine
PROC: 0SRS01Z Replacement of Left Hip Joint, Femoral Surface with Metal Synthetic Substitute, Open Approach (ICD-10-PCS; principal; 2024-06-08 16:05)
DX: S72.092A Other fracture of head and neck of left femur, initial encounter for closed fracture (principal); E43 Unspecified severe protein-calorie malnutrition; I13.0 Hypertensive heart and chronic kidney disease with heart failure and stage 1 through stage 4 chronic kidney disease, or unspecified chronic kidney disease; I97.711 Intraoperative cardiac arrest during other surgery; I25.10 Atherosclerotic heart disease of native coronary artery without angina pectoris; I50.9 Heart failure, unspecified; I48.0 Paroxysmal atrial fibrillation; E78.00 Pure hypercholesterolemia, unspecified; N18.30 Chronic kidney disease, stage 3 unspecified; Z88.8 Allergy status to other drugs, medicaments and biological substances; I25.2 Old myocardial infarction; Z88.1 Allergy status to other antibiotic agents; Z79.01 Long term (current) use of anticoagulants; Z79.899 Other long term (current) drug therapy; Z95.1 Presence of aortocoronary bypass graft; Z82.49 Family history of ischemic heart disease and other diseases of the circulatory system; W18.39XA Other fall on same level, initial encounter; Z87.891 Personal history of nicotine dependence; Y93.89 Activity, other specified; Y92.89 Other specified places as the place of occurrence of the external cause; Y99.8 Other external cause status; Z68.20 Body mass index [BMI] 20.0-20.9, adult
CPT/HCPCS: 36415; 71045; 73502; 73620; 73700; 80053; 82607; 82948; 83540; 83550; 83735; 84484; 85025; 85610; 85730; 93005; 93306; 96374; 99285; A4615; A6590; A7000; C1776; G0378; J0171; J1100; J1171; J1250; J2003; J2250; J2270; J2371; J2405; J2704; J2795; J3010; J3370; J3490; J7030; J7120; P9045